=== PATIENT | female | born 1955 ===

== ENCOUNTER 2023-03-07 04:38 | Day surgery (SDC) | payer OTHER ==
[2023-03-03 09:56] VITALS: BMI 21.6
[2023-03-07 13:07] VITALS: BP 123/60; PULSE 60; RESP 15; TEMP 98.2
== END 2023-03-07 13:10 | disposition home or self-care (01) ==
LOC: JASU-ENDO 04:38
PROVIDERS: ATTEND Internal Medicine Gastroenterology
PROC: 0DBN8ZX Excision of Sigmoid Colon, Via Natural or Artificial Opening Endoscopic, Diagnostic (ICD-10-PCS; 2023-03-07)
PROC: 0DBP8ZX Excision of Rectum, Via Natural or Artificial Opening Endoscopic, Diagnostic (ICD-10-PCS; principal; 2023-03-07 11:45)
DX: Z12.11 Encounter for screening for malignant neoplasm of colon (principal); K63.5 Polyp of colon; K62.1 Rectal polyp; K57.30 Diverticulosis of large intestine without perforation or abscess without bleeding; K64.8 Other hemorrhoids
CPT/HCPCS: 88305-TC